=== PATIENT | female | born 1950 | race Asian ===

== ENCOUNTER 2024-01-05 23:23 | Emergency (ER) | payer MEDICARE, OTHER ==
[~2024-01-05] VITALS: Ht 162.6 cm; Wt 124.7 kg
[2024-01-05] MEDS ORDERED: HYDR12.55 PO (23:40)
[2024-01-05] MEDS ORDERED: ALPR0.255 PO (23:40)
[2024-01-05] MEDS ORDERED: AMLO10TA59 PO (23:40)
[2024-01-05] MEDS ORDERED: ACETAMINOPHEN 500 MG TABLET ONE (23:45)
[2024-01-05] MEDS: ACETAMINOPHEN 500 MG TABLET PO ONE (23:46)
[2024-01-06 00:38] LABS: BASOPHILS % (AUTO) 0.2 % (0.0-2.0); HEMOGLOBIN 11.4 g/dL (10.9-14.3); LYMPHOCYTES # (AUTO) 0.5 K/uL (0.8-4.8); LYMPHOCYTES % (AUTO) 3.2 % (20.5-51.5); MEAN CORPUSCULAR HEMOGLOBIN 27.8 uug (24.7-32.8); MEAN CORPUSCULAR HGB CONC 32 g/dL (32.3-35.6); MONOCYTES # (AUTO) 0.7 K/uL (0.1-1.30); MONOCYTES % (AUTO) 4.2 % (0.0-11.0); NEUTROPHILS # (AUTO) 14.4 K/uL (1.8-8.9); NEUTROPHILS % (AUTO) 92.4 % (38.5-71.5); PLATELET COUNT (AUTO) 225 K/uL (179-408); RED CELL DISTRIBUTION WIDTH 14.9 % (12.3-17.7); WHITE BLOOD COUNT (AUTO) 15.6 K/uL (3.8-11.8)
[2024-01-06] MEDS ORDERED: ONDANSETRON 4 MG/2 ML VIAL ONE (00:39)
[2024-01-06] MEDS ORDERED: MORPHINE SULFATE 4 MG/1 ML DISP.SYRIN ONE (00:40)
[2024-01-06 00:42] LABS: CARBON DIOXIDE 25 mmol/L (21-32); CHLORIDE 99 mmol/L (98-107); CREATININE 1.2 mg/dL (0.6-1.3); GLUCOSE 136 mg/dL (74-106); LIPASE < 10 U/L (16-77); SODIUM SERUM 138 mmol/L (136-145); UREA NITROGEN, BLOOD 22 mg/dL (7-18)
[2024-01-06 00:43] LABS: POTASSIUM 2.8 mmol/L (3.5-5.1)
[2024-01-06] MEDS ORDERED: CEFTRIAXONE 1 G VIAL ONE (00:59)
[2024-01-06] MEDS: CEFTRIAXONE 2 G in IV DEXTROSE 5% 100 ML IV ONE (01:25)
[2024-01-06] MEDS: MORPHINE SULFATE 4 MG/1 ML DISP.SYRIN IV ONE (01:25)
[2024-01-06] MEDS: ONDANSETRON 4 MG/2 ML VIAL IV ONE (01:25)
[2024-01-06 01:33] LABS: *BILIRUBIN,URIN NEGATIVE (NEGATIVE); *BLOOD, URINE 2+ (NEGATIVE); *CLARITY,URINE SLIGHTLY CLOUDY (CLEAR); *COLOR,URINE YELLOW (YELLOW); *KETONES,URINE NEGATIVE (NEGATIVE); *PROTEIN,URINE 2+ (NEGATIVE); *UROBILINOGEN,URINE 0.2 E.U./dl (NORMAL); LEUKOCYTE ESTERASE ,URINE 1+ (NEGATIVE); NITRITE, URINE POSITIVE (NEGATIVE); PH,URINE 5.5 (5.0-8.0); UGLUCOSE NEGATIVE (NEGATIVE)
[2024-01-06 01:56] LABS: BACTERIA,URINE MODERATE /HPF (NONE SEEN); SQUAMOUS EPITHELIAL CELL,UR FEW /HPF (NONE SEEN)
[2024-01-06] MEDS ORDERED: POTASSIUM BICARBONATE/CIT AC 25 MEQ TABLET.EFF ONE (02:29)
[2024-01-06] MEDS: POTASSIUM BICARBONATE/CIT AC 25 MEQ TABLET.EFF PO ONE (02:31)
[2024-01-06] MEDS ORDERED: CEPH750C9 PO (03:15)
[2024-01-06 03:59] VITALS: BP 92/52; O2SAT 96
== END 2024-01-06 04:00 | disposition home or self-care (01) ==
LOC: ER 23:29
DX: N39.0 Urinary tract infection, site not specified (principal); F41.9 Anxiety disorder, unspecified; Z98.890 Other specified postprocedural states; Z79.899 Other long term (current) drug therapy; Z79.52 Long term (current) use of systemic steroids
CPT/HCPCS: 99285; 87077; 36415; 93005 ×2; 96365; 76700; 96375; 71045; 80048; 81001; 83690; 85025; 87040; 87186; 74021; 83605; 87086; J0696 ×2; J2405; J2270; A4606; A4663; A9150; C1758